=== PATIENT | male | born 1965 | race Caucasian/White ===

== ENCOUNTER 2023-11-23 08:45 | Day surgery (SDC) | payer BC ==
[~2023-11-23] VITALS: Ht 180.3 cm; Wt 117.9 kg
[~2023-11-23 08:45] MED LIST: ATOR1TAB21 PO; NS 1,000 ML IV ONE; PANT40TA29 PO
[2023-11-23] MEDS ORDERED: PHENYLephrine 500MCG 5ML (100MCG/ML) SYRINGE As Ordered ONE (11:10)
[2023-11-23] MEDS ORDERED: propofoL 500 MG/50 ML VIAL As Ordered ONE (11:10)
[2023-11-23] MEDS ORDERED: fentaNYL 100 MCG/2 ML INJECTION As Ordered ONE (11:10)
[2023-11-23] MEDS ORDERED: LIDOCAINE 2% 100MG/5ML SDV (FOR ANES.) As Ordered ONE (11:10)
[2023-11-23] MEDS ORDERED: propofoL 200 MG/20 ML VIAL As Ordered ONE (11:16)
[2023-11-23 12:03] VITALS: BP 103/66; O2SAT 98
== END 2023-11-23 12:04 | disposition home or self-care (01) ==
LOC: M OPP 08:45 → M SDC 08:45 → M OPP 12:04
PROVIDERS: ATTEND Internal Medicine Gastroenterology
DX: Z86.010 Personal history of colon polyps (principal); D12.6 Benign neoplasm of colon, unspecified; K57.30 Diverticulosis of large intestine without perforation or abscess without bleeding; K64.4 Residual hemorrhoidal skin tags; K64.8 Other hemorrhoids; K21.00 Gastro-esophageal reflux disease with esophagitis, without bleeding; K29.70 Gastritis, unspecified, without bleeding; K31.89 Other diseases of stomach and duodenum; K22.89 Other specified disease of esophagus; Z87.891 Personal history of nicotine dependence; G47.30 Sleep apnea, unspecified; Z99.89 Dependence on other enabling machines and devices; Z79.02 Long term (current) use of antithrombotics/antiplatelets; Z79.1 Long term (current) use of non-steroidal anti-inflammatories (NSAID); Z79.52 Long term (current) use of systemic steroids; Z79.899 Other long term (current) drug therapy
CPT/HCPCS: 43239; 45385; 88305; J2371; J3010